=== PATIENT | male | born 1990 | race American Indian/Alaskan Native ===

== ENCOUNTER 2018-11-21 23:52 | Emergency (ER) | payer OTHER ==
--- NOTE | 2018-11-22 00:42 | XRay Report ---
PROCEDURE: XR CHEST 1V AP TECHNIQUE: Chest radiograph single view. HISTORY: Chest Pain COMPARISONS: None . FINDINGS: Heart: Normal. Mediastinum/Vessels: Normal. Lungs/Pleural space: Normal. Bony thorax: No acute osseous abnormality. Life support devices: None. IMPRESSION: No acute cardiopulmonary abnormality. This document is electronically signed by Alexander Conklin MD., November 22 2018 12:40:04 AM ET
--- NOTE | 2018-11-22 04:30 | Emergency Department Report ---
- General Chief Complaint: Fever Stated Complaint: BODY SORE/FEVER Source: patient Mode of arrival: Ambulatory Limitations: No Limitations - History of Present Illness Initial Comments: Pt is a 28 yo male who presents to the ED with c/o a cough that began 4 days ago. He has associated fever, rhinorrhea, sore throat, congestion, and generalized body aches. The patient denies any ear ache, SOB, or CP. The patient states he has been taking tylenol for the fever. - Related Data Previous Rx's Medication Instructions Recorded Last Taken Type Brompheniramine/Pseudoephed/Dm 10 ml PO Q8HR PRN #118 syrup 11/22/18 Unknown Rx [Ppxhkumecm-Nfqttetklbq-Xm Syr] guaiFENesin [Mucinex] 600 mg PO BID #20 tab.er.12h 11/22/18 Unknown Rx methylPREDNISolone [Medrol Dose 10 mg PO DAILY 5 Days #15 pack 11/22/18 Unknown Rx Khris] Allergies Allergy/AdvReac Type Severity Reaction Status Date / Time No Known Allergies Allergy Unverified 08/18/18 21:36 ED Review of Systems ROS: Stated complaint: BODY SORE/FEVER Other details as noted in HPI Comment: All other systems reviewed and negative ED Past Medical Hx - Past Medical History Previous Medical History?: Yes Hx HIV: Yes - Surgical History Past Surgical History?: No - Social History Smoking Status: Former Smoker Substance Use Type: None - Medications Home Medications: Home Medications Medication Instructions Recorded Confirmed Last Taken Type Brompheniramine/Pseudoephed/Dm 10 ml PO Q8HR PRN #118 syrup 11/22/18 Unknown Rx [Iziwesnjaj-Xkaggpyasqu-Gi Syr] guaiFENesin [Mucinex] 600 mg PO BID #20 tab.er.12h 11/22/18 Unknown Rx methylPREDNISolone [Medrol Dose 10 mg PO DAILY 5 Days #15 pack 11/22/18 Unknown Rx Khris] ED Physical Exam - General Limitations: No Limitations General appearance: alert, in no apparent distress - Head Head exam: Present: atraumatic, normocephalic - Eye Eye exam: Present: normal appearance - ENT ENT exam: Present: normal orophraynx, mucous membranes moist, other (no tonsillar hypertrophy or exudates, no posterior oropharynx erythema) - Respiratory Respiratory exam: Present: normal lung sounds bilaterally. Absent: respiratory distress, wheezes, rales, rhonchi, stridor, accessory muscle use, decreased breath sounds - Cardiovascular Cardiovascular Exam: Present: regular rate, normal rhythm, normal heart sounds. Absent: systolic murmur, rubs, gallop ED Course Vital Signs 11/21/18 11/22/18 23:53 04:57 Temperature 98.9 F 98.6 F Pulse Rate 88 73 Respiratory 18 20 Rate Blood Pressure 103/78 Blood Pressure 98/62 [Left] O2 Sat by Pulse 99 99 Oximetry ED Medical Decision Making - EKG Data EKG shows normal: sinus rhythm, axis, intervals Rate: normal - EKG Data 11/22/18 05:01 early repolarization pattern, no STEMI - Radiology Data Radiology results: report reviewed, image reviewed PROCEDURE: XR CHEST 1V AP TECHNIQUE: Chest radiograph single view. HISTORY: Chest Pain COMPARISONS: None . FINDINGS: Heart: Normal. Mediastinum/Vessels: Normal. Lungs/Pleural space: Normal. Bony thorax: No acute osseous abnormality. Life support devices: None. IMPRESSION: No acute cardiopulmonary abnormality. This document is electronically signed by Alexander Conklin MD., November 22 2018 12:40:04 AM ET - Medical Decision Making Pt is a 28 yo male who presents to the ED with c/o cough, fever, rhinorrhea, congestion, and generalized body aches. CXR with no acute process. VSS. Pt has been sick for 4 days, no utility in testing for influenza, pt is out of the 48 hour range for tamiflu. He states his symptoms have been improving. Will tx symptomatically and give medrol dose pack. Advised to follow up with his PCP in the next 2-3 days. Discussed with pt return to the emergency room if any new or worsening symptoms. - Differential Diagnosis PNA, URI, Viral syndrome Critical care attestation.: If time is entered above; I have spent that time in minutes in the direct care of this critically ill patient, excluding procedure time. ED Disposition Clinical Impression: URI (upper respiratory infection) Qualifiers: URI type: unspecified URI Qualified Code(s): J06.9 - Acute upper respiratory infection, unspecified Disposition: DC-01 TO HOME OR SELFCARE Is pt being admited?: No Does the pt Need Aspirin: No Condition: Stable Instructions: Upper Respiratory Infection (ED) Additional Instructions: Follow up with your primary care doctor in the next 2-3 days. If new or worsening symptoms return to the ED. Prescriptions: Brompheniramine/Pseudoephed/Dm [Ftndecbxps-Gtakrmxiukx-Gs Syr] 10 ml PO Q8HR PRN #118 syrup PRN Reason: Cough methylPREDNISolone [Medrol Dose Khris] 10 mg PO DAILY 5 Days #15 pack guaiFENesin [Mucinex] 600 mg PO BID #20 tab.er.12h Referrals: CASA MARCUS MD [Primary Care Provider] - 2-3 Days Forms: Work/School Release Form(ED) Time of Disposition: 04:30 Print Language: [place]
[2018-11-22 04:57] VITALS: BP 98/62
== END 2018-11-22 04:58 | disposition home or self-care (01) ==
LOC: ED 23:52
DX: J06.9 Acute upper respiratory infection, unspecified (principal); Z86.79 Personal history of other diseases of the circulatory system
CPT/HCPCS: 71045; 93005; 93010